=== PATIENT | male | born 1960 | race Caucasian/White ===

== ENCOUNTER 2022-01-11 10:00 | Outpatient (CLI) | payer OTHER | END 2022-01-11 10:01 | disposition home or self-care (01) | LOC: BICRAD 10:00 | PROVIDERS: ATTEND Internal Medicine | DX: Z02.71 Encounter for disability determination (principal) | CPT/HCPCS: 71046 ==

== ENCOUNTER 2023-08-05 16:45 | Emergency (ER) | payer SELFPAY ==
[2023-08-05 17:57] LABS: Bacteria/HPF None Seen HPF (None Seen); Bilirubin Negative (Negative); Blood, Urine Negative (Negative); Clarity Clear (Clear); Glucose, Urine (Dipstick) Greater than 1000 mg/dL (Negative); Ketone, Urine Negative (Negative); Leukocyte Negative Leu/uL (Negative); Nitrite Negative (Negative); Protein, Urine (Dipstick) 30 mg/dL (Neg-Trace); RBC/HPF 0-3 HPF (0-3); Specific Gravity, Urine 1.039 (1.002-1.036); Squamous Epithelial 0-3 HPF (0-3); Urobilinogen Normal mg/dL (Less than 2); WBC/HPF 0-3 HPF (0-3)
== END 2023-08-05 18:51 | disposition home or self-care (01) ==
LOC: ERS 16:45
DX: N45.1 Epididymitis (principal)
CPT/HCPCS: 76870; 81001; 93976